=== PATIENT | male | born 1980 | race Caucasian/White ===

== ENCOUNTER → 2018-12-07 09:39 | Outpatient (CLI) | payer BC, MEDICAID, SELFPAY ==
[2018-12-07 10:43] LABS: Color, Urine Yellow (Yellow); Glucose, Dipstick Normal (Normal); Ketone-Dipstick Negative (Negative); Leukocyte Esterase-Dipstick Negative /ul (Negative); Nitrite-Dipstick Negative (Negative); Occult Blood-Urine 10 /ul (Negative); Protein-Dipstick Negative (Negative); Specific Gravity, Urine 1.015 (1.002-1.030); Urine Bilirubin Dipstick Negative (Negative); Urine Clarity Clear (Clear); Urine Urobilinogen Normal (Normal)
[2018-12-07 10:46] LABS: Absolute Lymphocyte Count 1.89 X10^3/ul (0.83-4.51); Absolute Neutrophil Count 4.2 X10^3/uL (2.0-7.7); Basophil# 0.02 X10^3/uL; Basophil% 0.3 % (0-1); Eosinophil# 0.16 X10^3/uL; Eosinophils% 2.3 % (0-5); Hematocrit 50.9 % (40-54); Hemoglobin 16.7 g/dl (13.0-16.5); Lymphocyte # 1.89 X10^3/ul (4.0); Lymphocyte % 27.2 % (19-41); Mean Corp Hgb Conc 32.8 g/gl (32-36); Mean Corpuscular Hgb 27.3 pg (27.0-32.0); Mean Corpuscular Volume 83.2 fL (80-94); Mean Platelet Vol. 9.1 fl (6.2-12.0); Monocyte# 0.62 X10^3/uL; Monocyte% 8.9 % (0-10); Neutrophil # 4.22 X10^3/uL (2.7-7.7); Neutrophil % 60.9 % (47-70); Platelet Count 272 K/mm3 (150-450); RBC Distribution Width CV 13.4 % (11.6-14.6); RBC Distribution Width SD 40.1 fl (35.1-43.9); Red Blood Count 6.12 M/mm3 (4.6-6.2); White Blood Count 6.9 K/mm3 (4.4-11.0)
[2018-12-07 10:48] LABS: POSITIVE COUNT NO; POSITIVE DIFFERENTIAL NO; POSITIVE MORPHOLOGY NO
[2018-12-07 11:17] LABS: ALB/GLOB Ratio 1.1 RATIO (0.9-2.4); AST(SGOT) 24 U/L (15-37); Alanine Aminotransfer ALT/SGPT 47 U/L (16-61); Alkaline Phosphatase 95 U/L (45-117); Anion Gap 10 (5-15); BUN 16 mg/dL (7-18); BUN/Creat Ratio 17.1 RATIO (10-20); Calcium,Total 8.7 mg/dL (8.5-10.1); Chloride 103 mmol/L (98-107); Cholesterol 218 mg/dL (200); Creatinine, Serum 0.94 mg/dL (0.70-1.30); EST Glomerular Filtration Rate 95 mL/min (>60); Est Glom Filt Rate - Afr Amer 115 mL/min (>60); Globulin 3.8 g/dL (2.2-4.2); Glucose 95 mg/dL (74-106); High Density Lipoprotein 37 mg/dL; Protein, Total 7.8 g/dL (6.4-8.2); Sodium Level 139 mmol/L (136-145); Triglycerides 255 mg/dL; Very Low Density Lipoprotein 51 mg/dL (5-40)
== END ==
PROVIDERS: Family Provider Family Medicine; PCP Family Medicine; Referring Provider Family Medicine; Visit Provider Family Medicine
DX: Z00.00 Encounter for general adult medical examination without abnormal findings (principal)
CPT/HCPCS: 36415; 80053; 80061; 81002; 85025

== ENCOUNTER → 2020-11-20 13:49 | Outpatient (CLI) | payer OTHER, SELFPAY ==
--- NOTE | 2020-11-20 13:53 | CT_ITS ---
STUDY: CT BRAIN WITHOUT CONTRAST REASON FOR EXAM: Male, 40 years old. Concussion without LOC. [facility] Sep RADIATION DOSAGE (If Supplied By Facility): CTDIvol = ( 44.99 ) mGy, DLP = ( 812.98 ) mGycm TECHNIQUE: Transaxial CT imaging of the brain was performed without administration of intravenous contrast material. Individualized dose optimization techniques were used for this CT. COMPARISON: No relevant priors. FINDINGS: Normal soft tissue structures. Normal calvarium. Normal size ventricles and extra-axial spaces for the patient''s age. Normal white matter tracts of the cerebral hemispheres. Normal basal ganglia and thalami. Normal brainstem. Normal cerebellum. There is no intracranial hemorrhage. There are no findings of an acute ischemic infarction. Normal visualized paranasal sinuses. CT/Brain/Head without Contrast IMPRESSION: Normal unenhanced CT scan of the brain. Electronically Signed: Felix Fowler MD at 14:32 EST , Service support ,
== END ==
PROVIDERS: PCP Family Medicine
DX: S06.0X0A Concussion without loss of consciousness, initial encounter (principal); X58.XXXA Exposure to other specified factors, initial encounter; Y93.9 Activity, unspecified; Y92.9 Unspecified place or not applicable; Y99.9 Unspecified external cause status; R42 Dizziness and giddiness; R51.9 Headache, unspecified
CPT/HCPCS: 70450

== ENCOUNTER 2024-10-15 22:02 | Emergency (ER) | payer SELFPAY ==
[2024-10-15 22:03] VITALS: PULSE 98; RESP 18; TEMP 37.3; O2SAT 98; BMI 35.3
[2024-10-15 22:06] VITALS: BP 160/104; PULSE 96; RESP 18; TEMP 37.3; O2SAT 95
--- NOTE | 2024-10-15 22:37 | CT_ITS ---
EXAM: CT ABDOMEN AND PELVIS WITHOUT INTRAVENOUS CONTRAST CLINICAL INDICATION: Kidney Stone TECHNIQUE: Helically acquired images were obtained of the abdomen and pelvis without intravenous contrast. This CT exam was performed using one or more of the following dose reduction techniques: automated exposure control, adjustment of the mA and/or kV according to patient size, and/or use of iterative reconstruction technique. RADIATION DOSE: Total DLP: 998.17 mGy-cm. COMPARISON: No relevant prior studies available. FINDINGS: LOWER THORAX: Visualized lung bases are clear. No coronary artery calcification is visualized. No significant pericardial effusion or hiatal hernia. Normal size epicardial lymph nodes are present. ABDOMEN: LIVER: Liver demonstrates fatty infiltration. GALLBLADDER AND BILE DUCTS: Gallbladder is partially contracted. No calcified gallstones, wall thickening or pericholecystic stranding. No biliary ductal dilatation. PANCREAS: Unremarkable. No focal cystic mass. SPLEEN: Unremarkable. Normal size without focal cystic or solid mass. ADRENALS: Unremarkable. No nodules. KIDNEYS AND URETERS: The kidneys are normal in size and shape. Minimal nonspecific perirenal stranding is present. No renal or obstructing ureteral stones are identified. No hydronephrosis. STOMACH AND BOWEL: Unremarkable. No stomach or bowel distention. No focal inflammatory change. PELVIS: APPENDIX: Normal appendix. No findings of acute appendicitis. BLADDER: Unremarkable. REPRODUCTIVE: Unremarkable as visualized. No mass. ABDOMEN and PELVIS: INTRAPERITONEAL SPACE: Unremarkable. No ascites or other fluid collection. No free air. BONES/JOINTS: Thoracolumbar degenerative spurring. Chronic pars defects at L5, without spondylolisthesis. No acute osseous abnormality. No suspicious lytic or blastic abnormality. SOFT TISSUES: Tiny fat-filled umbilical hernia. VASCULATURE: Unremarkable. Abdominal aorta is non-dilated. LYMPH NODES: Multiple normal to upper normal-sized lymph nodes are seen within the jejunal mesentery, with surrounding mesenteric haziness/mitchel mesentery. CT/Abdomen/Pelvis without Cont IMPRESSION: 1. No renal or obstructing ureteral stones. 2. Small nonspecific mesenteric lymph nodes with surrounding haziness, which can be due to a variety of etiologies, including an adenitis or mesenteric panniculitis, which can be a source of chronic abdominal pain. 3. Normal appendix. 4. No findings of small bowel obstruction. Electronically Signed: Fred Shook MD at 0:01 EST ,
[2024-10-15 22:50] LABS: Bacteria 0 SEEN /hpf (None Seen); Mucous, Urine 0 SEEN /hpf (<or=2+); Red Blood Cells-Urine 0 SEEN /hpf (0-5); Squamous Epithelial Cells - UA 0 SEEN /hpf (0-5); White Blood Cells 0 SEEN /hpf (0-5)
[2024-10-15] MEDS: Ketorolac 15 MG/ML Vial IV (22:50)
[2024-10-15] MEDS: Morphine 4 MG/ML Syringe IV (22:50)
[2024-10-15 22:52] LABS: Color, Urine Yellow (Yellow); Glucose, Dipstick Normal (Normal); Ketone-Dipstick Negative (Negative); Leukocyte Esterase-Dipstick Negative /ul (Negative); Nitrite-Dipstick Negative (Negative); Occult Blood-Urine Negative /ul (Negative); Protein-Dipstick Negative (Negative); Specific Gravity, Urine 1.015 (1.002-1.030); Urine Bilirubin Dipstick Negative (Negative); Urine Clarity Clear (Clear); Urine Urobilinogen Normal (Normal)
--- NOTE | 2024-10-15 23:04 | EX.ED.DYSGE1 ---
HPI History of Present Illness Chief Complaint: Flank Pain Informant: patient Narrative Narrative: 44-year-old male who denies significant past medical history presents with flank pain after coughing. He states it feels like something exploded in his left flank. Yesterday he may have felt a little pain in his left flank, I more towards his rib cage. Tonight, he coughed, and felt searing pain in his left flank radiating downwards. He states it hurts him in his left flank with movement of his abdomen from his ribs down to his pelvis. Its only on the left side. He does have some tenderness in that area as well. No recent fevers or chills. He has been coughing on occasion. No dysuria or hematuria. PFSH FORMERLY [facility], 1928–1983 Medical History no medical history Home Medications ?Medication ?Instructions ?Recorded ?Last Taken ?Type cyclobenzaprine 10 mg tablet 10 mg PO TID PRN Muscle Spasm #20 10/15/24 Unknown Rx TABLETS hydrocodone-acetaminophen 5-325mg 1 tab PO Q6H PRN PRN Pain 3 days 10/15/24 Unknown Rx 5mg-325mg #12 TABLETS naproxen 500 mg tablet (Naprosyn) 500 mg PO BID PRN pain #20 tabs 10/15/24 Unknown Rx Allergy/AdvReac Type Severity Reaction Status Date / Time No Known Allergies Allergy Verified 10/15/24 22:06 Social History Smoking Status: Former smoker ROS ROS ED ROS Narrative Constitutional: No fever, no chills. HEENT: No sore throat. No neck pain. No loss of vision. No rhinorrhea. Cardiovascular: No chest pain. No palpitations. No pedal edema. Respiratory: No cough, no shortness of breath. Abdominal: No abdominal pain. No nausea. No vomiting. Positive left flank pain worse with movement, starting around 7 PM tonight. Genitourinary: No dysuria. No hematuria. Musculoskeletal: No myalgias. No arthralgias. Neurologic: No headaches. No dizziness. No lightheadedness. Skin: No rash. No change in color. Psychiatric: No depression. No anxiety. EXAM Physical Exam Narrative Exam Narrative: Afebrile. Vital signs noted. Regular rate and rhythm. Lungs clear to auscultation bilaterally. Abdomen is soft with mild tenderness to palpation in the left flank. More mid axillary line and somewhat posterior as well. No guarding or rebound. Neuro vas intact bilateral lower extremities. Able to flex and extend left hip and flex and extend left knee. Const Vital Signs: 10/15/24 22:03 10/15/24 22:06 Temperature 99.1 F 99.1 F Temperature Source Oral Oral Pulse Rate 98 96 Respiratory Rate 18 18 Blood Pressure 160/104 H Blood Pressure Mean 122 Pulse Ox 98 95 Oxygen Delivery Method Room Air Room Air MDM MDM MDM Narrative Medical decision making narrative: Differential diagnosis includes but not limited to abdominal wall strain versus ureterolithiasis versus diverticulitis. History and physical does not support the latter 2 diagnoses. He definitely has pain when he tries to move his abdomen and transfer. I suspect more of a musculoskeletal strain. I have very low suspicion for pulmonary embolism as his pain is lower in his abdomen. Urinalysis was obtained and is negative for nitrites or occult blood, negative leukocyte esterase. Patient was administered morphine, Toradol, and oral Flexeril for analgesia. CT of the abdomen and pelvis was obtained without contrast to help rule out kidney stone. The results of his CT flank are still pending. At this point in time, patient signed out to the oncoming physician, Dr. Angel Olsen who will check the CT results to look for any acute process. I do feel this is probably more of an abdominal wall strain as he states he coughed again and had return of his pain. He was able to ambulate to the bathroom with assistance of his . I wrote him prescriptions for cyclobenzaprine, hydrocodone-acetaminophen, and naproxen in anticipation of his discharge. Disposition is pending. Patient is in stable condition. Lab Data Labs: Laboratory Results - last 24 hr 10/15/24 22:15 Urine Color Yellow Urine Clarity Clear Urine pH 6.0 Ur Specific [place] 1.015 Urine Protein Negative Urine Glucose (UA) Normal Urine Ketones Negative Urine Occult Blood Negative Urine Nitrite Negative Urine Bilirubin Negative Urine Urobilinogen Normal Ur Leukocyte Esterase Negative Urine RBC 0 SEEN Urine WBC 0 SEEN Ur Squamous Epith Cells 0 SEEN Urine Bacteria 0 SEEN Urine Mucus 0 SEEN Discharge Plan Triage Chief Complaint: Flank Pain ED Provider: Derek Lambert Dx/Rx/DC Orders Clinical Impression: Abdominal wall pain in left flank, Cough Instructions: ED Flank Pain, Uncertain Cause, ED Muscle Strain, Abdomen Prescriptions: New hydrocodone-acetaminophen 5-325 mg tablet 1 tab PO Q6H PRN PRN (Reason: Pain) 3 Days Qty: 12 0RF cyclobenzaprine 10 mg tablet 10 mg PO TID PRN (Reason: Muscle Spasm) Qty: 20 0RF naproxen [Naprosyn] 500 mg tablet 500 mg PO BID PRN (Reason: pain) Qty: 20 0RF Primary Care Provider: Ayush Cooper Referrals: Ayush Cooper MD [Primary Care Provider] - 3-5 Days if not improving Print Language: Divehi
[2024-10-15] MEDS: cycloBENZAPRine HCl 10 MG Tablet PO (23:20)
[2024-10-16 00:03] VITALS: BP 112/78; PULSE 69; RESP 18; O2SAT 98
== END 2024-10-16 00:16 | disposition home or self-care (01) ==
PROVIDERS: Emergency Provider Emergency Medicine; PCP Family Medicine; Visit Provider Emergency Medicine
DX: R10.9 Unspecified abdominal pain (principal); R05.9 Cough, unspecified; Z87.891 Personal history of nicotine dependence
CPT/HCPCS: 74176; 81001; 96374; 96375; 99284; A4216